=== PATIENT | female | born 2000 | race Two or more races ===

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

== ENCOUNTER 2019-12-30 07:41 | Emergency (ER) | payer OTHER ==
[~2019-12-30] VITALS: Ht 157.5 cm; Wt 53.1 kg
[2019-12-30] MEDS ORDERED: ZITHROMAX500 MG PO (10:15)
== END 2019-12-30 10:26 | disposition home or self-care (01) ==
LOC: EMR PED 07:41 → ER 07:41
DX: U07.1 COVID-19 (principal); B96.0 Mycoplasma pneumoniae [M. pneumoniae] as the cause of diseases classified elsewhere; R21 Rash and other nonspecific skin eruption

== ENCOUNTER 2021-05-19 09:05 | Outpatient (CLI) | payer OTHER ==
[~2021-05-19 09:05] MED LIST changes: +ZITHROMAX500 MG PO
== END 2021-05-19 09:11 | disposition home or self-care (01) ==
LOC: RAD 09:05
PROVIDERS: ATTEND General Practice
DX: S59.911A Unspecified injury of right forearm, initial encounter (principal); M79.632 Pain in left forearm; M79.641 Pain in right hand

== ENCOUNTER → 2021-12-27 | Emergency (ER) | payer OTHER ==
[~2021-12-27] VITALS: Ht 154.9 cm; Wt 53.5 kg
== END | disposition left against medical advice (07) ==
LOC: ER 10:42
DX: Z53.21 Procedure and treatment not carried out due to patient leaving prior to being seen by health care provider (principal)

== ENCOUNTER → 2022-07-03 | Outpatient (CLI) | payer OTHER | END | disposition home or self-care (01) | LOC: MRI 11:39 | DX: S86.002D Unspecified injury of left Achilles tendon, subsequent encounter (principal); S93.402D Sprain of unspecified ligament of left ankle, subsequent encounter | CPT/HCPCS: 73721 ==

== ENCOUNTER → 2022-07-06 08:01 | Outpatient (CLI) | payer OTHER | END | disposition home or self-care (01) | LOC: LAB 08:01 | DX: Z01.812 Encounter for preprocedural laboratory examination (principal); N39.0 Urinary tract infection, site not specified; J32.9 Chronic sinusitis, unspecified; D68.9 Coagulation defect, unspecified; J40 Bronchitis, not specified as acute or chronic ==

== ENCOUNTER 2022-10-26 08:19 | Outpatient (CLI) | payer OTHER | END 2022-10-26 08:21 | disposition home or self-care (01) | LOC: LAB 08:19 | PROVIDERS: ATTEND General Practice | DX: E78.5 Hyperlipidemia, unspecified (principal); E55.9 Vitamin D deficiency, unspecified; R42 Dizziness and giddiness; N39.0 Urinary tract infection, site not specified; R10.9 Unspecified abdominal pain; Z00.00 Encounter for general adult medical examination without abnormal findings ==